=== PATIENT | male | born 1975 | race Caucasian/White ===

== ENCOUNTER 2022-11-13 15:08 | Inpatient (IN) | payer OTHER ==
[~2022-11-13] VITALS: Ht 165.1 cm; Wt 59.4 kg
[2022-11-13 15:59] VITALS: BP 140/100; PULSE 83; RESP 18; TEMP 98.1; O2SAT 97
--- NOTE | 2022-11-13 16:10 | NUR ---
ETOH INTOXICATION SEEKING HELP. WAS AT A REHAB FACILITY AND WAS REFUSED D/T INSURANCE. PATIENT ENDORSING PALPITATIONS, ANXIETY, AND TREMORS. PMH: ETOH INTOXICATION
[2022-11-13] MEDS ORDERED: NACL 0.9% 1,000 ML IV ONE (16:15)
[2022-11-13 16:49] LABS: BASOPHILS # (AUTO) 0.1 K/uL (0.00-0.22); EOSINOPHILS # (AUTO) 0.1 K/uL (0-0.4); EOSINOPHILS % (AUTO) 3.3 % (0.0-4.0); HEMOGLOBIN 12.9 g/dL (12.0-18.0); LYMPHOCYTES # (AUTO) 1.2 K/uL (2.0-11.5); LYMPHOCYTES % (AUTO) 46.5 % (20.5-51.1); MEAN CORPUSCULAR HEMOGLOBIN 29 pg (27-31); MEAN CORPUSCULAR HGB CONC 34 g/dL (33-37); MEAN CORPUSCULAR VOLUME 86.3 fL (80-94); MONOCYTES # (AUTO) 0.3 K/uL (0.8-1.0); MONOCYTES % (AUTO) 12.7 % (1.7-9.3); NEUTROPHILS # (AUTO) 0.8 K/uL (1.8-7.7); NEUTROPHILS % (AUTO) 32.5 % (42.2-75.2); PLATELET COUNT (AUTO) 167 K/uL (140-450); RED CELL DISTRIBUTION WIDTH 16.1 % (11.6-13.7); WHITE BLOOD COUNT (AUTO) 2.6 K/uL (4.8-10.8)
[2022-11-13 17:09] LABS: PROTHROMBIN TIME 9.8 secs (10.8-13.4)
[2022-11-13 17:26] LABS: ALBUMIN 3.9 g/dL (3.4-5.0); ANION GAP 18.9 (8-16); ASPARTATE AMINOTRANSFERASE 146 U/L (15-37); CARBON DIOXIDE 25.3 mmol/L (21-32); CHLORIDE 87 mmol/L (98-107); CREATININE 0.6 mg/dL (0.6-1.3); GFR ARICAN-AMERICAN 187 mL/min (>90); GLUCOSE 163 mg/dL (74-106); POTASSIUM 4.2 mmol/L (3.5-5.1); SODIUM SERUM 127 mmol/L (136-145); TOTAL BILIRUBIN 0.7 mg/dL (0.0-1.0); UREA NITROGEN, BLOOD 4 mg/dL (7-18)
[2022-11-13 18:42] LABS: APPEARANCE,URINE CLEAR (CLEAR); BILIRUBIN,URINE NEGATIVE (NEGATIVE); BLOOD, URINE NEGATIVE (NEGATIVE); COLOR,URINE YELLOW (YELLOW); LEUKOCYTE ESTERASE ,URINE NEGATIVE (NEGATIVE); NITRITE, URINE NEGATIVE (NEGATIVE); UGLUCOSE NEGATIVE (NEGATIVE)
--- NOTE | 2022-11-13 19:30 | NUR ---
pt resting on bed. A/ox4. not in distress. on monitor. call light within reach.
[2022-11-13] MEDS ORDERED: DEXT 5% / NACL 0.45% 1,000 ML IV SCH (20:15)
[2022-11-13] MEDS: LORazepam 1 MG TAB PO SCH (21:00)
[2022-11-13 21:05] VITALS: PULSE 63; RESP 16; O2SAT 97
--- NOTE | 2022-11-13 21:05 | NUR ---
PT. ARRIVED FROM ER TO [facility]
--- NOTE | 2022-11-13 21:10 | NUR ---
Patient will be admitted to care of Dr. haro. Admited to telemetry. Will go to [id number]. Belongings list completed. Report to romana sinclair.
[2022-11-13 21:30] LABS: BARBITURATE, URINE NEGATIVE ng/ml (NEG <=200); BENZODIAZEPINE, URINE NEGATIVE ng/mL (NEG <=200); CANNABINOID, URINE NEGATIVE ng/mL (NEG <=50); COCAINE, URINE NEGATIVE ng/mL (NEG <=300); OPIATE, URINE NEGATIVE ng/mL (NEG <=2000); PHENCYCLIDINE SCREEN,URINE NEGATIVE ng/mL (NEG <=25)
--- NOTE | 2022-11-13 21:55 | NUR ---
RECEIVED CALL FROM CARLOS NARVAEZ INQUIRING ABOUT PATIENT'S STATUS. UPDATED MD ABOUT LABS, STATES TO ORDER SERUM AND URINE OSMOLALITY WELL SODIUM AND POTASSIUM URINE. ORDERS READ BACK. STATES TO ORDER BMP STAT AND TO INFORM OF RESULTS STAT.
[2022-11-13 22:35] LABS: ANION GAP 15.9 (8-16); CARBON DIOXIDE 27.3 mmol/L (21-32); CREATININE 0.7 mg/dL (0.6-1.3); POTASSIUM 4.2 mmol/L (3.5-5.1)
--- NOTE | 2022-11-13 22:42 | NUR ---
INFORMED CARLOS NARVAEZ OF NEW SODIUM AND GLUCOSE LEVEL, STATES TO DISCONTINUE PREVIOUS IV FLUIDS AND START D5W @ 200ML/HR NOW. WELL START PATIENT ON FOLIC ACID, THAIMINE AND MULTIVITAMIN WITH FIRST DOSES DUE NOW AND ORDER BMP FOR AM DRAW. ALSO STATES TO ENCOURAGE PATIETN TO DRINK 1L OF WATER IF POSSIBLE. ORDERS CARRIED OUT AND PATIENT ENCOURAGED TO DRINK FLUIDS.
[2022-11-13] MEDS ORDERED: MULTIVITAMIN 1 TAB PO SCH (22:55)
[2022-11-13] MEDS ORDERED: FOLIC ACID 1 MG TAB PO SCH (22:55)
[2022-11-13] MEDS ORDERED: THIAMINE 100 MG TAB PO SCH (22:55)
[2022-11-13] MEDS: DEXTROSE 5% 1,000 ML IV SCH (23:12)
[2022-11-14] VITALS: BP 108/73; PULSE 61; PULSE 71; RESP 20; TEMP 95.6; O2SAT 98
[2022-11-14 04:00] VITALS: BP 143/103; PULSE 66; PULSE 89; RESP 20; TEMP 97.9; O2SAT 97
[2022-11-14] MEDS: DEXTROSE 5% 1,000 ML IV SCH (04:40)
[2022-11-14] MEDS: LORazepam 1 MG TAB PO SCH ×3 (04:40→21:22)
[2022-11-14 05:27] LABS: BASOPHILS # (AUTO) 0.1 K/uL (0.00-0.22); BASOPHILS % (AUTO) 2.9 % (0.0-2.0); EOSINOPHILS # (AUTO) 0.1 K/uL (0-0.4); EOSINOPHILS % (AUTO) 3.4 % (0.0-4.0); HEMATOCRIT 36.7 % (36-52); HEMOGLOBIN 12.5 g/dL (12.0-18.0); LYMPHOCYTES # (AUTO) 0.5 K/uL (2.0-11.5); LYMPHOCYTES % (AUTO) 16.3 % (20.5-51.1); MEAN CORPUSCULAR HEMOGLOBIN 30 pg (27-31); MEAN CORPUSCULAR HGB CONC 34 g/dL (33-37); MEAN CORPUSCULAR VOLUME 87.8 fL (80-94); MONOCYTES # (AUTO) 0.2 K/uL (0.8-1.0); MONOCYTES % (AUTO) 6.2 % (1.7-9.3); NEUTROPHILS # (AUTO) 2.2 K/uL (1.8-7.7); NEUTROPHILS % (AUTO) 71.2 % (42.2-75.2); PLATELET COUNT (AUTO) 130 K/uL (140-450); RED BLOOD CELL COUNT(AUTO) 4.18 MIL/uL (4.20-6.10); RED CELL DISTRIBUTION WIDTH 16.2 % (11.6-13.7); WHITE BLOOD COUNT (AUTO) 3.1 K/uL (4.8-10.8)
[2022-11-14 05:57] LABS: ALBUMIN 3.6 g/dL (3.4-5.0); ANION GAP 17.6 (8-16); CARBON DIOXIDE 24.9 mmol/L (21-32); CREATININE 0.6 mg/dL (0.6-1.3); PHOSPHORUS 3.1 mg/dL (2.5-4.9); POTASSIUM 3.5 mmol/L (3.5-5.1); TOTAL BILIRUBIN 0.8 mg/dL (0.0-1.0)
[2022-11-14] MEDS: LORazepam 1 MG TAB PO PRN ×3 (06:17→23:45)
[2022-11-14] MEDS ORDERED: ACETAMINOPHEN 325 MG TAB ONE (06:35)
--- NOTE | 2022-11-14 07:30 | NUR ---
RECEIVED PT FROM THE FIELD CANE SCALER HELPER STAFF. PATIENT WAS IN BED ASLEEP. NO SIGNS OF RESPIRATORY DISTRESS/DISCOMFORT. NO SOB. NO COMPLAIN OF PAIN. CALL LIGHTS KEEP WITH IN REACH
[2022-11-14 08:00] VITALS: BP 150/104; PULSE 102; PULSE 117; PULSE 63; RESP 16; RESP 18; TEMP 98.7; O2SAT 96; O2SAT 97
--- NOTE | 2022-11-14 08:53 | NUR ---
PATIENT HAS BEEN SCREENED AND CATEGORIZED HIGH NUTRITION RISK. PATIENT WILL BE SEEN WITHIN 1-2 DAYS OF ADMISSION. 11/14/22-11/15/[address] Addendum: 11/14/22 at [address] [facility] REFERRAL RECEIVED FOR POOR APPETITE AND WEIGHT LOSS ON 11/14/22. PATIENT IS HIGH RISK AND WILL BE SEEN WITHIN 1-2 DAYS OF RECEIVING REFERRAL. [address]
[2022-11-14] MEDS: THIAMINE 100 MG TAB PO SCH (10:17)
[2022-11-14] MEDS: MULTIVITAMIN 1 TAB PO SCH (10:17)
[2022-11-14] MEDS: FOLIC ACID 1 MG TAB PO SCH (10:18)
--- NOTE | 2022-11-14 11:26 | NUR ---
PRN ATIVAN 2 MG PO WAS GIVEN FOR AGITATION. NO RESPIRATORY DISTRESS OR DISCOMFORT NOTED.
[2022-11-14 12:00] VITALS: PULSE 92; RESP 19; O2SAT 97
--- NOTE | 2022-11-14 12:28 | NUR ---
DC [age] YRS OLD MALE PATIENT WAS ADMITTED FROM HOME WITH A DX OF ALCOHOL WITHDRAWAL. PATIENT HAS A HX OF ALCOHOL ABUSE. ALCOHOL LEVEL WAS 437 AND NA+ LEVEL 127. CXR SHOWED NO ACUTE CARDIOPULMONARY DISEASE ADMINISTERED IV BANANA BAG AND ATIVAN. CONSULTED WITH NEPHRO. DC PLAN TO GO HOME WHEN STABLE. CM O FOLLOW
--- NOTE | 2022-11-14 13:03 | NUR ---
11/14/22 RD INITIAL ASSESSMENT COMPLETED PLEASE REFER TO NUTRITION ASSESSMENT UNDER CARE ACTIVITY FOR ESTIMATED NUTRITIONAL NEEDS. 1. CONTINUE REGULAR DIET TOLERATED 2. RD RECOMMENDS ENSURE BID FOR CALORIC AND PROTEIN INATKE AND DUE TO POOR PO INTAKE. THIS WILL PROVIDE 700 CALORIES AND 40 GRAMS OF PROTEIN. 3. RD TO FOLLOW-UP 3-5 DAYS, MODERATE RISK OFELIA TERRELL RD
--- NOTE | 2022-11-14 14:15 | NUR ---
PT COMPLAINED OF NAUSEA. ZOFRAN PRN WAS ADMINISTERED
[2022-11-14] MEDS: ONDANSETRON 4 MG/2 ML VIAL IVP PRN ×2 (14:17→21:22)
[2022-11-14 16:00] VITALS: PULSE 92; RESP 19; O2SAT 97
--- NOTE | 2022-11-14 16:22 | NUR ---
P.T. NOTES P.T. EVAL COMPLETED; REFER TO EVAL FOR DETAILS.
--- NOTE | 2022-11-14 19:20 | NUR ---
PT WAS ENDORSED TO THE BELL SPINNER STAFF. PT WAS ASLEEP IN BED, STABLE. NO SIGNS OF RESPIRATORY DISTRESS OR DISCOMFORT. CALL LIGHT KEEP WITHIN REACH
--- NOTE | 2022-11-14 19:50 | NUR ---
INFORMED BY ADJUNCT INSTRUCTOR IN ECONOMICS THAT PATIEN'TS HEART RATE IS IN 160S CHECKED ON PATIENT CURRENTLY VOMITING
[2022-11-14 20:00] VITALS: BP 114/75; PULSE 112; PULSE 118; PULSE 73; PULSE 96; RESP 20; TEMP 99.1; O2SAT 95
[2022-11-14] MEDS: ACETAMINOPHEN 325 MG TAB PO PRN (23:57)
[2022-11-15] VITALS (8 sets, daily range): BP systolic 127–146; BP diastolic 94–111; PULSE 82–122; RESP 17–24; TEMP 97–99.3; O2SAT 96–99
[2022-11-15] MEDS: LORazepam 1 MG TAB PO SCH ×3 (04:51→20:47)
[2022-11-15] MEDS: ACETAMINOPHEN 325 MG TAB PO PRN ×2 (04:52→20:47)
[2022-11-15 05:55] LABS: BASOPHILS # (AUTO) 0.1 K/uL (0.00-0.22); BASOPHILS % (AUTO) 1.5 % (0.0-2.0); EOSINOPHILS % (AUTO) 0.6 % (0.0-4.0); HEMATOCRIT 40.8 % (36-52); HEMOGLOBIN 13.7 g/dL (12.0-18.0); LYMPHOCYTES # (AUTO) 0.7 K/uL (2.0-11.5); MEAN CORPUSCULAR HEMOGLOBIN 29 pg (27-31); MEAN CORPUSCULAR HGB CONC 34 g/dL (33-37); MEAN CORPUSCULAR VOLUME 87.6 fL (80-94); MONOCYTES # (AUTO) 0.4 K/uL (0.8-1.0); MONOCYTES % (AUTO) 7.6 % (1.7-9.3); NEUTROPHILS # (AUTO) 3.7 K/uL (1.8-7.7); NEUTROPHILS % (AUTO) 76.3 % (42.2-75.2); PLATELET COUNT (AUTO) 118 K/uL (140-450); RED BLOOD CELL COUNT(AUTO) 4.66 MIL/uL (4.20-6.10); RED CELL DISTRIBUTION WIDTH 15.8 % (11.6-13.7); WHITE BLOOD COUNT (AUTO) 4.9 K/uL (4.8-10.8)
[2022-11-15 06:15] LABS: ANION GAP 16.7 (8-16); CARBON DIOXIDE 27.6 mmol/L (21-32); CREATININE 0.8 mg/dL (0.6-1.3); MAGNESIUM 1.8 mg/dL (1.8-2.4); POTASSIUM 3.3 mmol/L (3.5-5.1); TOTAL BILIRUBIN 1.2 mg/dL (0.0-1.0)
[2022-11-15] MEDS: ONDANSETRON 4 MG/2 ML VIAL IVP PRN (06:17)
[2022-11-15] MEDS: LORazepam 1 MG TAB PO PRN ×2 (06:18→11:50)
--- NOTE | 2022-11-15 07:05 | NUR ---
RECEIVED BEDSIDE REPORT FROM NIGHTSHIFT NURSE. PT IS RESTING IN BED, STABLE, NO SIGNS OF DISTRESS, NO REPORTS OF PAIN/DISCOMFORT. PT HAS CALL LIGHT WITHIN REACH. NO FURTHER NEEDS ARE TO BE MET AT THIS TIME. WILL CONTINUE WITH PT CARE.
[2022-11-15] MEDS ORDERED: POTASSIUM CHLORIDE 10 MEQ TABER PO SCH (07:45)
[2022-11-15] MEDS: FOLIC ACID 1 MG TAB PO SCH (08:34)
[2022-11-15] MEDS: MULTIVITAMIN 1 TAB PO SCH (08:34)
[2022-11-15] MEDS: THIAMINE 100 MG TAB PO SCH (08:34)
[2022-11-15 18:02] LABS: POTASSIUM,URINE RANDOM 7 mmol/L (12-75); URINE SODIUM, RANDOM 11 mmol/l (40-220)
--- NOTE | 2022-11-15 19:15 | NUR ---
ENDORSED TO NIGHTSHIFT NURSE FOR CONTINUITY OF CARE. PT STABLE, RESTING IN BED, NO SIGNS OF DISTRESS, NO REPORTS OF PAIN OR DISCOMFORT. CALL LIGHT WITHIN REACH.
[2022-11-16] VITALS: BP 127/96; PULSE 107; PULSE 86; RESP 16; TEMP 97.9; O2SAT 98
[2022-11-16 04:00] VITALS: BP 146/116; PULSE 100; PULSE 73; TEMP 97.5; O2SAT 98
[2022-11-16] MEDS: LORazepam 1 MG TAB PO SCH ×3 (04:25→20:05)
[2022-11-16 05:11] LABS: BASOPHILS # (AUTO) 0.1 K/uL (0.00-0.22); BASOPHILS % (AUTO) 1.2 % (0.0-2.0); EOSINOPHILS # (AUTO) 0.1 K/uL (0-0.4); EOSINOPHILS % (AUTO) 2.3 % (0.0-4.0); HEMATOCRIT 40.8 % (36-52); HEMOGLOBIN 13.8 g/dL (12.0-18.0); LYMPHOCYTES % (AUTO) 20.3 % (20.5-51.1); MEAN CORPUSCULAR HEMOGLOBIN 30 pg (27-31); MEAN CORPUSCULAR HGB CONC 34 g/dL (33-37); MONOCYTES # (AUTO) 0.4 K/uL (0.8-1.0); MONOCYTES % (AUTO) 7.1 % (1.7-9.3); NEUTROPHILS # (AUTO) 3.5 K/uL (1.8-7.7); NEUTROPHILS % (AUTO) 69.1 % (42.2-75.2); PLATELET COUNT (AUTO) 112 K/uL (140-450); RED BLOOD CELL COUNT(AUTO) 4.64 MIL/uL (4.20-6.10); RED CELL DISTRIBUTION WIDTH 15.8 % (11.6-13.7); WHITE BLOOD COUNT (AUTO) 5.1 K/uL (4.8-10.8)
[2022-11-16 05:38] LABS: ALBUMIN 3.8 g/dL (3.4-5.0); ANION GAP 17.1 (8-16); CARBON DIOXIDE 23.5 mmol/L (21-32); CREATININE 0.8 mg/dL (0.6-1.3); MAGNESIUM 1.8 mg/dL (1.8-2.4); PHOSPHORUS 3.7 mg/dL (2.5-4.9); POTASSIUM 3.6 mmol/L (3.5-5.1); TOTAL BILIRUBIN 1.4 mg/dL (0.0-1.0)
--- NOTE | 2022-11-16 07:10 | NUR ---
RECEIVED PT FROM CORPORATE ASSOCIATE ATTORNEY NURSE FOR CONTINUITY OF CARE. PT IN BED AWAKE, AOX4. ABLE TO VERBALIZE NEEDS. RESPIRATIONS EVEN AND UNLABORED ON RA. IV ON R HAND 18G, SALINE LOCK. SKIN WARM AND DRY. CALL LIGHT WITHIN REACH, ALL SAFETY PRECAUTIONS IN PLACE.
[2022-11-16 08:00] VITALS: BP 143/102; PULSE 104; PULSE 105; PULSE 112; RESP 16; TEMP 96.9; O2SAT 97; O2SAT 98
[2022-11-16] MEDS: THIAMINE 100 MG TAB PO SCH (09:02)
[2022-11-16] MEDS: FOLIC ACID 1 MG TAB PO SCH (09:03)
[2022-11-16] MEDS: MULTIVITAMIN 1 TAB PO SCH (09:03)
[2022-11-16] MEDS: LACTULOSE 20 GM/30 ML UDC PO SCH (09:39)
[2022-11-16 12:00] VITALS: BP 140/92; PULSE 112; PULSE 93; RESP 16; TEMP 96.6; O2SAT 98
[2022-11-16] MEDS: NACL 0.9% 1,000 ML IV SCH (15:06)
[2022-11-16] MEDS: ACETAMINOPHEN 325 MG TAB PO PRN ×2 (15:11→20:11)
[2022-11-16 16:00] VITALS: BP 119/93; PULSE 100; PULSE 107; RESP 16; TEMP 98; O2SAT 98
--- NOTE | 2022-11-16 16:39 | NUR ---
PHYSICAL THERAPY CO-SIGN The Physical Therapy Progress Notes documented by Assistant Maintenance Manager have been reviewed. Reviewed/Co-Signed by: Kaylin aPtel PT Documentation Done by:DANIEL HARRINGTON ELECTRONIC DESIGN ENGINEER Addendum: 11/16/22 at 1639 by Kaylin Patel PT Amended: Links added.
--- NOTE | 2022-11-16 19:24 | NUR ---
ENDORSED PT TO READY TO WEAR DEPARTMENT MANAGER NURSE FOR CONTINUITY OF CARE. PT IS STABLE.
--- NOTE | 2022-11-16 19:25 | NUR ---
RECEIVED ENDORSEMENT FROM MYRTLE HUMAN RESOURCES DIRECTOR FOR CONTINUITY OF CARE. PATIENT IS AWAKE AND STABLE. A&OX4. VERBALLY RESPONSIVE AND ABLE TO COMMUNICATE NEEDS. ON ROOM AIR WITH NO APPARENT S/SX OF ACUTE DISTRESS. RESPIRATIONS EVEN AND UNLABORED. IV SITE TO THE RH 18G INTACT/PATENT WITH NS INFUSING AT 70 ML/HR. PATIENT IS AMBULATORY. SKIN IS INTACT. PLAN OF CARE AND WHITE COMMUNICATION BOARD UPDATED. ALL SAFETY MEASURES IN PLACE. CALL LIGHT WITHIN REACH. ENCOURAGED TO CALL FOR ANY NEEDS/ASSISTANCE. BED IN LOW/LOCKED POSITION. WILL CONTINUE TO MONITOR.
[2022-11-16 20:00] VITALS: BP 115/80; PULSE 103; PULSE 106; PULSE 85; RESP 18; RESP 20; TEMP 98.2; O2SAT 98; O2SAT 99
--- NOTE | 2022-11-16 21:00 | NUR ---
ADMINISTERED SCHEDULED MEDICATIONS PER MD ORDER. TOLERATED WELL. C/O HEADACHE. MEDICATED PER PRN. TOLERATED WELL. RESPIRATIONS EVEN AND UNLABORED WITH NO APPARENT S/SX OF ACUTE DISTRESS. NO OTHER NEEDS AT THIS TIME. WHITE COMMUNICATION BOARD UPDATED. ALL SAFETY MEASURES IN PLACE. CALL LIGHT WITHIN REACH. BED IN LOW/LOCKED POSITION. SIDE RAILS X2 UP. WILL CONTINUE TO MONITOR.
--- NOTE | 2022-11-16 23:00 | NUR ---
PATIENT IS STABLE AND ASLEEP WITH NO FACIAL GRIMACING. FLACC=0. CHEST IS RISING AND FALLING SYMMETRICALLY. RESPIRATIONS EVEN AND UNLABORED WITH NO APPARENT S/SX OF ACUTE DISTRESS. WHITE COMMUNICATION BOARD UPDATED. ALL SAFETY MEASURES IN PLACE. CALL LIGHT WITHIN REACH. BED IN LOW/LOCKED POSITION. SIDE RAILS X2 UP. WILL CONTINUE TO MONITOR.
[2022-11-17] VITALS: BP 123/81; PULSE 104; PULSE 87; RESP 18; TEMP 98.1; O2SAT 100
--- NOTE | 2022-11-17 01:00 | NUR ---
PROVIDED WARM BLANKET PER PATIENT REQUEST. DENIES PAIN. RESPIRATIONS EVEN AND UNLABORED WITH NO APPARENT S/SX OF ACUTE DISTRESS. WHITE COMMUNICATION BOARD UPDATED. ALL SAFETY MEASURES IN PLACE. CALL LIGHT WITHIN REACH. BED IN LOW/LOCKED POSITION. SIDE RAILS X2 UP. WILL CONTINUE TO MONITOR.
[2022-11-17 04:00] VITALS: BP 131/93; PULSE 73; PULSE 94; RESP 19; TEMP 97.4; O2SAT 99
[2022-11-17 05:12] LABS: BASOPHILS # (AUTO) 0.1 K/uL (0.00-0.22); BASOPHILS % (AUTO) 1.1 % (0.0-2.0); EOSINOPHILS # (AUTO) 0.1 K/uL (0-0.4); EOSINOPHILS % (AUTO) 2.2 % (0.0-4.0); HEMATOCRIT 38.6 % (36-52); HEMOGLOBIN 12.8 g/dL (12.0-18.0); LYMPHOCYTES # (AUTO) 0.8 K/uL (2.0-11.5); LYMPHOCYTES % (AUTO) 16.5 % (20.5-51.1); MEAN CORPUSCULAR HEMOGLOBIN 30 pg (27-31); MEAN CORPUSCULAR HGB CONC 33 g/dL (33-37); MEAN CORPUSCULAR VOLUME 89.2 fL (80-94); MONOCYTES # (AUTO) 0.4 K/uL (0.8-1.0); MONOCYTES % (AUTO) 7.1 % (1.7-9.3); NEUTROPHILS # (AUTO) 3.7 K/uL (1.8-7.7); NEUTROPHILS % (AUTO) 73.1 % (42.2-75.2); PLATELET COUNT (AUTO) 81 K/uL (140-450); RED BLOOD CELL COUNT(AUTO) 4.33 MIL/uL (4.20-6.10); RED CELL DISTRIBUTION WIDTH 15.5 % (11.6-13.7); WHITE BLOOD COUNT (AUTO) 5.1 K/uL (4.8-10.8)
--- NOTE | 2022-11-17 05:15 | NUR ---
ADMINISTERED SCHEDULED MEDICATION PER MD ORDER. TOLERATED WELL. PATIENT C/O HEADACHE. MEDICATED PER PRN ORDER. TOLERATED WELL. CHANGED IVF BAG. ALL NEEDS MET AT THIS TIME. WHITE COMMUNICATION BOARD UPDATED. ALL SAFETY MEASURES IN PLACE. CALL LIGHT WITHIN REACH. WILL CONTINUE TO MONITOR.
[2022-11-17] MEDS: LORazepam 1 MG TAB PO SCH (05:17)
[2022-11-17] MEDS: ACETAMINOPHEN 325 MG TAB PO PRN (05:18)
[2022-11-17] MEDS: NACL 0.9% 1,000 ML IV SCH (05:20)
[2022-11-17 05:52] LABS: ALBUMIN 3.3 g/dL (3.4-5.0); ANION GAP 14.8 (8-16); CARBON DIOXIDE 25.1 mmol/L (21-32); CREATININE 0.6 mg/dL (0.6-1.3); MAGNESIUM 1.8 mg/dL (1.8-2.4); PHOSPHORUS 3.9 mg/dL (2.5-4.9); POTASSIUM 3.9 mmol/L (3.5-5.1); TOTAL BILIRUBIN 0.9 mg/dL (0.0-1.0)
--- NOTE | 2022-11-17 07:00 | NUR ---
ENDORSED PATIENT TO ANAMIKA SUH FOR CONTINUITY OF CARE. PATIENT IS STABLE.
--- NOTE | 2022-11-17 07:05 | NUR ---
RECEIVED REPORT FROM NIGHT STAFF OF PT FOR CONTINUITY OF CARE. PT WAS ASLEEP. NO SIGNS OF RESPIRATORY DISTRESS. CALL LIGHTS WITHIN REACH
[2022-11-17 08:00] VITALS: BP 142/103; PULSE 167; PULSE 99; RESP 18; TEMP 98.4; O2SAT 99
[2022-11-17] MEDS ORDERED: THIA-34 PO (08:21)
[2022-11-17] MEDS ORDERED: LORA-476 PO (08:21)
[2022-11-17] MEDS ORDERED: LACT10SO11 PO (08:21)
[2022-11-17] MEDS ORDERED: THE PO (08:21)
[2022-11-17] MEDS: LORazepam 1 MG TAB PO PRN (08:54)
--- NOTE | 2022-11-17 08:54 | NUR ---
PRN ATIVAN GIVEN PER PT REQUEST
[2022-11-17] MEDS: LACTULOSE 20 GM/30 ML UDC PO SCH (09:00)
[2022-11-17] MEDS: MULTIVITAMIN 1 TAB PO SCH (09:27)
[2022-11-17] MEDS: THIAMINE 100 MG TAB PO SCH (09:27)
[2022-11-17] MEDS: FOLIC ACID 1 MG TAB PO SCH (09:27)
[2022-11-17 11:50] VITALS: BP 142/103; PULSE 99; RESP 18; TEMP 98.4
--- NOTE | 2022-11-17 13:00 | NUR ---
ORDERED FOR DC. PT WAS AWARE FOR THE DISCHARGED ORDER. DISCHARGE INSTRUCTIONS AND TEACHING EDUCATION WAS PROVIDED. PT VERBALLY UNDERSTAND THE EDUCATION. SIGNED THE PAPER WORKS AND POCKET DISCHARGE WAS GIVEN I.V LINES AND I.D BAND WAS REMOVED. PT WAS IN GOOD SPIRIT AND STABLE. STAFF ACCOMPANIED THE PT UNTIL OUT IN THE FACILITY
== END 2022-11-17 13:00 | disposition home or self-care (01) | DRG 816 ==
LOC: MED 15:08 → MTU 20:13
PROVIDERS: ADMIT Internal Medicine; ATTEND Internal Medicine
DX: T51.0X1A Toxic effect of ethanol, accidental (unintentional), initial encounter (principal); G92.8 Other toxic encephalopathy; R65.10 Systemic inflammatory response syndrome (SIRS) of non-infectious origin without acute organ dysfunction; E87.1 Hypo-osmolality and hyponatremia; F10.139 Alcohol abuse with withdrawal, unspecified; E87.6 Hypokalemia
CPT/HCPCS: 36415; 71045; 76700; 80048; 80053; 80305; 81003; 82140; 83735; 83930; 83935; 84100; 84133; 84300; 84484; 85025; 85610; 85730; 87081; 93005; 97112; 97116; 97530; 99285; G0482; J2405; Q0092

== ENCOUNTER 2022-12-21 17:21 | Inpatient (IN) | payer OTHER ==
[~2022-12-21] VITALS: Ht 162.6 cm; Wt 55.8 kg
[~2022-12-21 17:21] MED LIST: LACT10SO11 PO; LORA-476 PO; THE PO; THIA-34 PO
[2022-12-21 17:47] VITALS: BP 128/104; PULSE 130; RESP 20; TEMP 97.7; O2SAT 96
[2022-12-21] MEDS ORDERED: NACL 0.9% 1,000 ML IV ONE (18:40)
[2022-12-21] MEDS ORDERED: MIDAZOLAM 5 MG/5 ML VIAL IV ONE (18:40)
[2022-12-21 19:02] LABS: BASOPHILS % (AUTO) 0.7 % (0.0-2.0); EOSINOPHILS % (AUTO) 0.3 % (0.0-4.0); HEMATOCRIT 43.1 % (36-52); HEMOGLOBIN 14.8 g/dL (12.0-18.0); LYMPHOCYTES # (AUTO) 1.5 K/uL (2.0-11.5); LYMPHOCYTES % (AUTO) 29.5 % (20.5-51.1); MEAN CORPUSCULAR HEMOGLOBIN 29 pg (27-31); MEAN CORPUSCULAR HGB CONC 34 g/dL (33-37); MEAN CORPUSCULAR VOLUME 84.7 fL (80-94); MONOCYTES # (AUTO) 0.2 K/uL (0.8-1.0); NEUTROPHILS # (AUTO) 3.3 K/uL (1.8-7.7); NEUTROPHILS % (AUTO) 65.5 % (42.2-75.2); PLATELET COUNT (AUTO) 121 K/uL (140-450); RED BLOOD CELL COUNT(AUTO) 5.09 MIL/uL (4.20-6.10); RED CELL DISTRIBUTION WIDTH 14.3 % (11.6-13.7)
[2022-12-21 19:32] LABS: ALANINE AMINOTRANSFERASE 73 U/L (12-78); ALBUMIN 4.3 g/dL (3.4-5.0); ALKALINE PHOSPHATASE 96 U/L (50-136); ASPARTATE AMINOTRANSFERASE 145 U/L (15-37); CALCIUM 8.6 mg/dL (8.5-10.1); CARBON DIOXIDE 21.9 mmol/L (21-32); CHLORIDE 92 mmol/L (98-107); CREATININE 0.8 mg/dL (0.6-1.3); GFR ARICAN-AMERICAN 134 mL/min (>90); GFR NON ARICAN-AMERICAN 111 mL/min (>90); GLUCOSE 123 mg/dL (74-106); LIPASE 120 U/L (73-393); PHOSPHORUS 4.3 mg/dL (2.5-4.9); POTASSIUM 4.9 mmol/L (3.5-5.1); SODIUM SERUM 131 mmol/L (136-145); THYROID STIMULATING HORMONE 0.88 uIU/mL (0.34-3.74); TOTAL BILIRUBIN 0.6 mg/dL (0.0-1.0); TOTAL PROTEIN, SERUM 8.6 g/dL (6.4-8.2); UREA NITROGEN, BLOOD 3 mg/dL (7-18)
[2022-12-21 19:35] LABS: ALCOHOL, BLOOD 407 mg/dL (<10)
[2022-12-21 19:37] LABS: ACETONE, SERUM Negative (NEGATIVE)
[2022-12-21 22:53] LABS: APPEARANCE,URINE CLEAR (CLEAR); BILIRUBIN,URINE NEGATIVE (NEGATIVE); BLOOD, URINE NEGATIVE (NEGATIVE); COLOR,URINE YELLOW (YELLOW); LEUKOCYTE ESTERASE ,URINE NEGATIVE (NEGATIVE); NITRITE, URINE NEGATIVE (NEGATIVE); PROTEIN,URINE TRACE (NEGATIVE); UGLUCOSE NEGATIVE (NEGATIVE); UROBILINOGEN,URINE 0.2 EU/dL (0.2 - 1)
[2022-12-21 23:04] LABS: AMPHETAMINE, URINE NEGATIVE ng/ml (NEG <=1000); BARBITURATE, URINE NEGATIVE ng/ml (NEG <=200); BENZODIAZEPINE, URINE NEGATIVE ng/mL (NEG <=200); CANNABINOID, URINE NEGATIVE ng/mL (NEG <=50); COCAINE, URINE NEGATIVE ng/mL (NEG <=300); OPIATE, URINE NEGATIVE ng/mL (NEG <=2000); PHENCYCLIDINE SCREEN,URINE NEGATIVE ng/mL (NEG <=25)
[2022-12-21] MEDS ORDERED: METOPROLOL 5 MG/5 ML VIAL IVP ONE (23:10)
[2022-12-21] MEDS ORDERED: LORazepam 2 MG/ML VIAL IVP ONE (23:10)
[2022-12-22] VITALS (7 sets, daily range): BP systolic 142–148; BP diastolic 97–105; PULSE 88–158; RESP 12–18; TEMP 96.2–98.4; O2SAT 95–99
[2022-12-22] MEDS ORDERED: POTASSIUM CHLORIDE 10 MEQ TABER PO PRN (03:30)
[2022-12-22] MEDS ORDERED: ONDANSETRON 4 MG/2 ML VIAL IVP PRN (03:30)
[2022-12-22] MEDS ORDERED: MAGNESIUM OXIDE 400 MG TAB PO PRN (03:30)
[2022-12-22] MEDS ORDERED: MAG SULF 2000 MG/WATER PREMIX 50 ML IV PRN (03:30)
[2022-12-22] MEDS ORDERED: KCL 20 MEQ IN 100 mL PREMIX 200 ML IV PRN (03:30)
[2022-12-22] MEDS: LORazepam 1 MG TAB PO SCH ×2 (06:02→12:59)
[2022-12-22] MEDS: FOLIC ACID 1 MG TAB PO SCH (09:45)
[2022-12-22] MEDS: DOCUSATE SODIUM 100 MG GELCAP PO SCH (09:45)
[2022-12-22] MEDS: THIAMINE 100 MG TAB PO SCH (09:46)
[2022-12-22] MEDS: LACTULOSE 20 GM/30 ML UDC PO SCH (09:51)
[2022-12-22] MEDS: MULTIVITAMIN 1 TAB PO SCH (09:56)
[2022-12-22] MEDS: LORazepam 1 MG TAB PO PRN ×3 (09:57→20:40)
[2022-12-22] MEDS ORDERED: LORazepam 2 MG/ML VIAL IVP PRN (16:45)
[2022-12-22] MEDS: chlordiazePOXIDE 25 MG CAP PO SCH (16:54)
[2022-12-23] VITALS (9 sets, daily range): BP systolic 90–142; BP diastolic 32–112; PULSE 71–153; RESP 12–21; TEMP 97.5–99.8; O2SAT 97–100
[2022-12-23 06:15] LABS: BASOPHILS % (AUTO) 0.7 % (0.0-2.0); EOSINOPHILS % (AUTO) 0.8 % (0.0-4.0); HEMATOCRIT 36.1 % (36-52); HEMOGLOBIN 12.3 g/dL (12.0-18.0); LYMPHOCYTES # (AUTO) 1.4 K/uL (2.0-11.5); LYMPHOCYTES % (AUTO) 27.8 % (20.5-51.1); MEAN CORPUSCULAR HEMOGLOBIN 29 pg (27-31); MEAN CORPUSCULAR HGB CONC 34 g/dL (33-37); MEAN CORPUSCULAR VOLUME 85.5 fL (80-94); MONOCYTES # (AUTO) 0.2 K/uL (0.8-1.0); MONOCYTES % (AUTO) 4.5 % (1.7-9.3); NEUTROPHILS # (AUTO) 3.3 K/uL (1.8-7.7); NEUTROPHILS % (AUTO) 66.2 % (42.2-75.2); RED BLOOD CELL COUNT(AUTO) 4.22 MIL/uL (4.20-6.10); RED CELL DISTRIBUTION WIDTH 13.9 % (11.6-13.7)
[2022-12-23 06:49] LABS: ALBUMIN 3.6 g/dL (3.4-5.0); CALCIUM 8.9 mg/dL (8.5-10.1); CARBON DIOXIDE 26.8 mmol/L (21-32); CREATININE 0.7 mg/dL (0.6-1.3); MAGNESIUM 2.1 mg/dL (1.8-2.4); PHOSPHORUS 3.5 mg/dL (2.5-4.9); POTASSIUM 3.8 mmol/L (3.5-5.1); TOTAL BILIRUBIN 1.2 mg/dL (0.0-1.0); TOTAL PROTEIN, SERUM 6.9 g/dL (6.4-8.2)
[2022-12-23 07:51] LABS: PLATELET COUNT (AUTO) 59 K/uL (140-450)
[2022-12-23] MEDS: LACTULOSE 20 GM/30 ML UDC PO SCH (08:24)
[2022-12-23] MEDS: THIAMINE 100 MG TAB PO SCH (08:24)
[2022-12-23] MEDS: DOCUSATE SODIUM 100 MG GELCAP PO SCH (08:25)
[2022-12-23] MEDS: chlordiazePOXIDE 25 MG CAP PO SCH ×3 (08:25→16:35)
[2022-12-23] MEDS: MULTIVITAMIN 1 TAB PO SCH (08:25)
[2022-12-23] MEDS: FOLIC ACID 1 MG TAB PO SCH (08:25)
[2022-12-23] MEDS: ACETAMINOPHEN 325 MG TAB PO PRN (23:10)
[2022-12-24] VITALS: BP 118/89; PULSE 89; PULSE 95; RESP 18; TEMP 98.6; O2SAT 99
[2022-12-24 04:00] VITALS: BP 126/94; PULSE 72; PULSE 80; RESP 18; TEMP 98.6; O2SAT 99
[2022-12-24 06:04] LABS: HEMATOCRIT 36.7 % (36-52); HEMOGLOBIN 12.5 g/dL (12.0-18.0); MEAN CORPUSCULAR HEMOGLOBIN 29 pg (27-31); MEAN CORPUSCULAR HGB CONC 34 g/dL (33-37); MEAN CORPUSCULAR VOLUME 86.1 fL (80-94); PLATELET COUNT (AUTO) 55 K/uL (140-450); RED BLOOD CELL COUNT(AUTO) 4.26 MIL/uL (4.20-6.10); RED CELL DISTRIBUTION WIDTH 13.8 % (11.6-13.7)
[2022-12-24 06:25] LABS: ALBUMIN 3.5 g/dL (3.4-5.0); ANION GAP 15.5 (8-16); CALCIUM 8.9 mg/dL (8.5-10.1); CARBON DIOXIDE 26.7 mmol/L (21-32); CREATININE 0.8 mg/dL (0.6-1.3); MAGNESIUM 1.9 mg/dL (1.8-2.4); PHOSPHORUS 3.2 mg/dL (2.5-4.9); POTASSIUM 3.2 mmol/L (3.5-5.1); TOTAL BILIRUBIN 1.3 mg/dL (0.0-1.0)
[2022-12-24 07:01] LABS: BASOPHILS % (MANUAL) 0 % (0-2); EOSINOPHILS % (MANUAL) 2 % (0-4); LYMPHOCYTES % (MANUAL) 27 % (20-46); MONOCYTES % (MANUAL) 3 % (5-12)
[2022-12-24 07:02] LABS: PLATELET ESTIMATE DECREASED
[2022-12-24 08:00] VITALS: BP 118/81; PULSE 131; PULSE 97; RESP 19; TEMP 98.2; O2SAT 98
[2022-12-24] MEDS: LACTULOSE 20 GM/30 ML UDC PO SCH (08:57)
[2022-12-24] MEDS: DOCUSATE SODIUM 100 MG GELCAP PO SCH (08:57)
[2022-12-24] MEDS: MULTIVITAMIN 1 TAB PO SCH (08:58)
[2022-12-24] MEDS: FOLIC ACID 1 MG TAB PO SCH (08:58)
[2022-12-24] MEDS: THIAMINE 100 MG TAB PO SCH (08:58)
[2022-12-24] MEDS: chlordiazePOXIDE 25 MG CAP PO SCH ×3 (08:58→21:11)
[2022-12-24 12:00] VITALS: BP 108/73; PULSE 72; PULSE 81; RESP 18; TEMP 97.2; O2SAT 98
[2022-12-24] MEDS: ACETAMINOPHEN 325 MG TAB PO PRN (13:15)
[2022-12-24 16:00] VITALS: BP 116/86; PULSE 82; RESP 19; TEMP 97.2; O2SAT 97
[2022-12-24 20:00] VITALS: BP 125/82; PULSE 78; RESP 18; TEMP 98.3; O2SAT 99
[2022-12-25 04:00] VITALS: BP 116/85; PULSE 72; RESP 18; TEMP 97.8; O2SAT 99
[2022-12-25 05:29] LABS: BASOPHILS % (AUTO) 0.4 % (0.0-2.0); EOSINOPHILS # (AUTO) 0.1 K/uL (0-0.4); EOSINOPHILS % (AUTO) 2.4 % (0.0-4.0); HEMATOCRIT 35.1 % (36-52); LYMPHOCYTES # (AUTO) 1.5 K/uL (2.0-11.5); MEAN CORPUSCULAR HEMOGLOBIN 30 pg (27-31); MEAN CORPUSCULAR HGB CONC 34 g/dL (33-37); MEAN CORPUSCULAR VOLUME 86.8 fL (80-94); MONOCYTES # (AUTO) 0.3 K/uL (0.8-1.0); MONOCYTES % (AUTO) 5.9 % (1.7-9.3); NEUTROPHILS % (AUTO) 61.3 % (42.2-75.2); PLATELET COUNT (AUTO) 62 K/uL (140-450); RED BLOOD CELL COUNT(AUTO) 4.04 MIL/uL (4.20-6.10); RED CELL DISTRIBUTION WIDTH 13.7 % (11.6-13.7)
[2022-12-25 06:06] LABS: ALBUMIN 3.4 g/dL (3.4-5.0); ANION GAP 14.5 (8-16); CALCIUM 8.9 mg/dL (8.5-10.1); CARBON DIOXIDE 26.5 mmol/L (21-32); CREATININE 0.8 mg/dL (0.6-1.3); MAGNESIUM 1.7 mg/dL (1.8-2.4); PHOSPHORUS 3.7 mg/dL (2.5-4.9); TOTAL BILIRUBIN 0.8 mg/dL (0.0-1.0); TOTAL PROTEIN, SERUM 6.9 g/dL (6.4-8.2)
[2022-12-25 08:18] VITALS: PULSE 75; RESP 20; O2SAT 100
[2022-12-25] MEDS: FOLIC ACID 1 MG TAB PO SCH (10:12)
[2022-12-25] MEDS: chlordiazePOXIDE 25 MG CAP PO SCH (10:12)
[2022-12-25] MEDS: THIAMINE 100 MG TAB PO SCH (10:12)
[2022-12-25] MEDS: LACTULOSE 20 GM/30 ML UDC PO SCH (10:12)
[2022-12-25] MEDS: DOCUSATE SODIUM 100 MG GELCAP PO SCH (10:13)
[2022-12-25] MEDS: MULTIVITAMIN 1 TAB PO SCH (10:13)
[2022-12-25] MEDS ORDERED: LIB25 PO (15:46)
[2022-12-25 16:34] VITALS: BP 135/66; PULSE 68; RESP 20; TEMP 97.1
== END 2022-12-25 17:05 | disposition home or self-care (01) | DRG 426 ==
LOC: MED 17:21 → MTU 12-22 03:29
PROVIDERS: ADMIT Hospitalist; ATTEND Hospitalist
DX: E87.1 Hypo-osmolality and hyponatremia (principal); R65.10 Systemic inflammatory response syndrome (SIRS) of non-infectious origin without acute organ dysfunction; F10.139 Alcohol abuse with withdrawal, unspecified; F41.9 Anxiety disorder, unspecified; Y90.9 Presence of alcohol in blood, level not specified
CPT/HCPCS: 36415; 71045; 80053; 80305; 81003; 82009; 82140; 83690; 83735; 84100; 84443; 84484; 85025; 87081; 93005; 96361; 96374; 96375; 99285; G0482; J2060; J2250; J3490; J7030; Q0092

== ENCOUNTER 2023-07-20 14:53 | Emergency (ER) | payer OTHER ==
[~2023-07-20] VITALS: Ht 165.1 cm; Wt 56.7 kg
[~2023-07-20 14:53] MED LIST changes: +CHLO-1446 PO
[2023-07-20 15:07] VITALS: BP 138/98; PULSE 82; RESP 15; TEMP 98.5; O2SAT 99
[2023-07-20] MEDS ORDERED: CEPH-588 PO (15:23)
== END 2023-07-20 15:36 | disposition home or self-care (01) ==
LOC: MED 14:53
DX: S01.01XD Laceration without foreign body of scalp, subsequent encounter (principal); Z48.00 Encounter for change or removal of nonsurgical wound dressing; Z48.02 Encounter for removal of sutures; W18.30XD Fall on same level, unspecified, subsequent encounter
CPT/HCPCS: 99283

== ENCOUNTER 2023-07-23 14:33 | Emergency (ER) | payer OTHER ==
[~2023-07-23] VITALS: Ht 165.1 cm; Wt 56.7 kg
[~2023-07-23 14:33] MED LIST changes: +CEPH-588 PO
[2023-07-23 14:34] VITALS: BP 147/96; PULSE 77; RESP 18; TEMP 99; O2SAT 99
[2023-07-23] MEDS ORDERED: BACITRACIN OINT 500 UNITS/GM PKT TP ONE (15:01)
== END 2023-07-23 15:09 | disposition home or self-care (01) ==
LOC: MED 14:33
DX: S01.01XD Laceration without foreign body of scalp, subsequent encounter (principal); Z48.00 Encounter for change or removal of nonsurgical wound dressing; Z79.899 Other long term (current) drug therapy; X58.XXXD Exposure to other specified factors, subsequent encounter
CPT/HCPCS: 99281

== ENCOUNTER 2023-08-23 00:05 | Emergency (ER) | payer OTHER ==
[~2023-08-23] VITALS: Ht 165.1 cm; Wt 56.7 kg
[2023-08-23 00:09] VITALS: BP 133/88; PULSE 116; RESP 18; TEMP 98.1; O2SAT 97
[2023-08-23 00:10] VITALS: O2SAT 99
[2023-08-23] MEDS: NACL 0.9% 1,000 ML IV ONE (00:49)
[2023-08-23] MEDS: LORazepam 2 MG/ML VIAL IVP ONE (00:59)
[2023-08-23 01:06] LABS: MAGNESIUM 2.4 mg/dL (1.8-2.4)
[2023-08-23] MEDS: KETOROLAC 30 MG/ML VIAL IVP ONE (01:14)
[2023-08-23 01:29] LABS: ANION GAP 21.8 (8-16); CALCIUM 8.4 mg/dL (8.5-10.1); CARBON DIOXIDE 25.1 mmol/L (21-32); CREATININE 0.8 mg/dL (0.6-1.3); POTASSIUM 3.9 mmol/L (3.5-5.1)
[2023-08-23 02:14] VITALS: BP 120/86; PULSE 90; RESP 19; TEMP 98.7; O2SAT 97
== END 2023-08-23 02:14 | disposition home or self-care (01) ==
LOC: MED 00:05
DX: F10.129 Alcohol abuse with intoxication, unspecified (principal); K08.89 Other specified disorders of teeth and supporting structures; Z79.899 Other long term (current) drug therapy; Y90.8 Blood alcohol level of 240 mg/100 ml or more
CPT/HCPCS: 36415; 80048; 83735; 96361; 96374; 96375; 99284; G0482; J1885; J2060; J7030